=== PATIENT | female | born 1960 | race Caucasian/White ===

== ENCOUNTER 2018-09-06 14:28 | Emergency (ER) | payer OTHER ==
[2018-09-06 14:48] VITALS: BP 166/98
--- NOTE | 2018-09-06 15:39 | ED Physician Documentation ---
Upper Respiratory Symptoms - HISTORIAN Historian: patient - HPI Stated Complaint: Headache/Emesis Chief Complaint: Cough/ Upper Respiratory Onset: days ago Associated Symptoms: chills, earache, runny nose, sinus pain, allergy. denies: fever, sweating, sinus drainage, sore throat, hoarseness, hay fever, chest pain, bloody cough, productive cough, shortness of breath, headache Further Comments: yes (58 year old female patient presents with complaints of cough, headache, nasal congestion, and chills for the past 5-6 days. States she has been using Dayquil with no relief. Reports vomiting x2 this morning.) - ROS CONST/EYES: weakness CVS/RESP: none LYMPH: denies: leg swelling, rash, swollen glands, ankle swelling, other GI/: none NEURO/PSYCH: denies: fainting, dizziness, confusion, anxiety, depression, other MS/SKIN: denies: joint pain, muscle aches, rash, other - PAST HX Lung Disease: none Allergies/Adverse Reactions: Allergies Allergy/AdvReac Type Severity Reaction Status Date / Time No Known Drug Allergies Allergy Verified 09/06/18 14:49 Home Medications: Ambulatory Orders Medication Instructions Recorded Azithromycin [Zithromax] 250 mg PO DAILY #6 tablet 09/06/18 - SOCIAL HX Smoking History: non-smoker - FAMILY HX Family History: denies: none - VITAL SIGNS Vital Signs: Vital Signs Temp Pulse Resp BP Pulse Ox 98.1 F 82 15 166/98 97 09/06/18 15:43 09/06/18 15:43 09/06/18 15:43 09/06/18 15:43 09/06/18 15:43 - REVIEWED ASSESSMENTS Nursing Assessment Reviewed: Yes Vitals Reviewed: Yes ED Results Lab/Radiology - Lab Results Lab Results: Lab Results 09/06/18 14:40 Influenza A (Rapid) Negative (NEGATIVE) Influenza B (Rapid) Negative (NEGATIVE) - Orders Orders: ED Orders Category Date Time Status INFLUENZA A&B Routine Lab 09/06/18 14:40 Completed Ketorolac Tromethamine [Toradol] Med 09/06/18 15:36 Discontinued 60 mg IM NOW ONE Upper Respiratory Symptoms - EXAM General Appearance: mild distress EENT: eyes nml inspection, nml ENT inspection, lids & conjunct. nml, PERRL, ear nml, TM erythema (right; buldging TM), nose nml, airway nml, pharyngeal erythema Respiratory: no resp. 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 Treat your symptoms with over the counter medication. You may want to try Vicks rub on your chest and/or feet Cough drops as needed for cough and sore throat. Increase your fluid intake juices, hot tea, non-caffeinated beverages Use a humidifier in the room where you sleep. You can also sit in a steam filled bathroom 1-2 times a day. Tylenol or Ibuprofen as needed for fever, pain and body aches. See your primary care doctor after you have completed your antibiotic if you symptoms have not resolved. Many times it takes multiple rounds of antibiotics to resolve a sinus infection. Condition: Stable Decision to Admit: NO Decision Time: 15:37
[2018-09-06] MEDS: KETOROLAC TROMETHAMINE 60 MG/2 ML VIAL IM ONE (15:40)
== END 2018-09-06 15:43 ==
LOC: ED 14:28
DX: H66.91 Otitis media, unspecified, right ear (principal)
CPT/HCPCS: 87400; 96372; 99283; J1885

== ENCOUNTER 2018-10-24 07:28 | Outpatient (CLI) | payer OTHER ==
[2018-11-11 11:07] LABS: eGFR (Non-African) > 60
[2018-11-11 11:08] LABS: HDL 98 mg/dL (>40)
== END 2018-10-24 07:33 | disposition home or self-care (01) ==
LOC: LAB 07:28
PROVIDERS: ATTEND Family Medicine
DX: E78.5 Hyperlipidemia, unspecified (principal)
CPT/HCPCS: 36415; 80053; 80061